=== PATIENT | male | born 1970 | race Caucasian/White ===

== ENCOUNTER 2019-06-07 19:58 | Emergency (ER) | payer BC, OTHER ==
--- OUTSIDE RECORDS SUMMARY | 2019-06-07 20:04 | XMS REPORT | Continuity of Care Document ---
:1970 External Reference #:[id number] Author Name Melanie Aguilar O.D. Address [address] [place] [address] Care Team Providers Name Role Phone Elkin Dow M.D. - Family Medicine Care Team Information Director Of Field Service Problems Active Problems Provider Date Myopia Melanie Aguilar O.D. Onset: 11/17/2014 Astigmatism Melanie Aguilar O.D. Onset: 11/17/2014 Presbyopia Melanie Aguilar O.D. Onset: 11/17/2014 Tear film insufficiency Melanie Aguilar O.D. Onset: 11/17/2014 Open-angle glaucoma - borderline Melanie Aguilar O.D. Onset: 11/27/2018 Scleritis Melanie Aguilar O.D. Onset: 04/30/2019 Age related macular degeneration Melanie Aguilar O.D. Onset: 05/20/2019 Social History Type Date Description Comments Sex Unknown ETOH Use Occasionally consumes alcohol Tobacco Use Start: Unknown Patient has never smoked Recreational Drug Use Never Used Drugs Smoking Status Reviewed: 05/20/19 Patient has never smoked Allergies, Adverse Reactions, Alerts Description No Known Drug Allergies Medications Active Medications SIG Qnty Indications Ordering Provider Date Maxitrol 1 drop both eyes 10ml H15.103 Melanie Aguilar, 04/30/2019 3.5-06873-6.1 three times a day O.D. Suspension Multiple Vitamin Unknown Tablets Artificial Tears as needed Unknown 0.2-0.2-1% Solution Immunizations Description No Information Available Vital Signs Description No Information Available Results Description No Information Available Procedures Date Code Description Status 04/30/2019 64200 Est Patient Intermediate Exam Completed 11/27/2018 96370 Scanning Computerized Ophthalmic Diagnostic Imag Posterior Completed Seg On 11/27/2018 95881 Determination Of Refractive State Completed 11/27/2018 92036 Est Patient Comprehensive Exam Completed 11/27/2018 22108 Pachymetry Completed Medical Devices Description No Information Available Encounters Description No Information Available Assessments Date Code Description Provider 05/20/2019 H15.103 Unspecified episcleritis, bilateral Melanie Aguilar O.D. 05/20/2019 H35.30 Unspecified macular degeneration Melanie Aguilar O.D. 04/30/2019 H15.103 Unspecified episcleritis, bilateral Melanie Aguilar O.D. 11/27/2018 H40.013 Open angle with borderline findings, low Melanie Aguilar O.D. risk, bilateral 11/27/2018 H52.13 Myopia, bilateral Melanie Aguilar O.D. 11/27/2018 H52.203 Unspecified astigmatism, bilateral Melanie Aguilar O.D. 11/27/2018 H52.4 Presbyopia Melanie Aguilar O.D. 11/27/2018 H04.123 Dry eye syndrome of bilateral lacrimal glands Melanie Aguilar O.D. Plan of Treatment 05/20/2019 - Melnaie Aguilar O.D.H15.103 Unspecified episcleritis, bilateralComments:Smoking can increase the risk of developing or worsening any eye related disease, as well as affect your overall health. If you are a smoker , we strongly recommend that you quit.If you are not a smoker, we strongly recommend that you do not start. discontinue maxitrol dropsstart preservative free artificial tears every 1-2 hoursif your symptoms worsen, please call the office to be seenFollow up:Saturday with Dr. Mccauley or sooner as [id number] Unspecified macular degenerationComments:Smoking can increase the risk of developing or worsening any eye related disease, as well as affect your overall health. If you are a smoker, we strongly recommend that you quit.If you are not a smoker, we strongly recommend that you do not start. Functional Status Description No Information Available Mental Status Description No Information Available Referrals Description No Information Available
--- OUTSIDE RECORDS SUMMARY | 2019-06-07 20:04 | XMS REPORT | Continuity of Care Document ---
:1970 External Reference #:[id number] Author Name Melanie Aguilar O.D. Address [address] [place] [address] Care Team Providers Name Role Phone Elkin Dow M.D. - Family Medicine Care Team Information Mental Health Nurse Problems Active Problems Provider Date Myopia Melanie Aguilar O.D. Onset: 11/17/2014 Astigmatism Melanie Aguilar O.D. Onset: 11/17/2014 Presbyopia Melanie Aguilar O.D. Onset: 11/17/2014 Tear film insufficiency Melanie Aguilar O.D. Onset: 11/17/2014 Scleritis Melanie Aguilar O.D. Onset: 04/30/2019 Open-angle glaucoma - borderline Melanie Aguilar O.D. Onset: 11/27/2018 Social History Type Date Description Comments Sex Unknown ETOH Use Occasionally consumes alcohol Tobacco Use Start: Unknown Patient has never smoked Recreational Drug Use Never Used Drugs Smoking Status Reviewed: 04/30/19 Patient has never smoked Allergies, Adverse Reactions, Alerts Description No Known Drug Allergies Medications Active Medications SIG Qnty Indications Ordering Provider Date Maxitrol 1 drop both eyes 10ml H15.103 Melanie Aguilar, 04/30/2019 3.5-49967-8.1 three times a day O.D. Suspension Multiple Vitamin Unknown Tablets Artificial Tears as needed Unknown 0.2-0.2-1% Solution Immunizations Description No Information Available Vital Signs Description No Information Available Results Description No Information Available Procedures Date Code Description Status 11/27/2018 05408 Scanning Computerized Ophthalmic Diagnostic Imag Posterior Completed Seg On 11/27/2018 45125 Determination Of Refractive State Completed 11/27/2018 72560 Est Patient Comprehensive Exam Completed 11/27/2018 63024 Pachymetry Completed Medical Devices Description No Information Available Encounters Description No Information Available Assessments Date Code Description Provider 04/30/2019 H15.103 Unspecified episcleritis, bilateral Melanie Aguilar O.D. 11/27/2018 H40.013 Open angle with borderline findings, low Melanie Aguilar O.D. risk, bilateral 11/27/2018 H52.13 Myopia, bilateral Melanie Aguilar O.D. 11/27/2018 H52.203 Unspecified astigmatism, bilateral Melanie Aguilar O.D. 11/27/2018 H52.4 Presbyopia Melanie Aguilar O.D. 11/27/2018 H04.123 Dry eye syndrome of bilateral lacrimal glands Melanie Aguilar O.D. Plan of Treatment Future Appointment(s):05/07/2019 12:45 pm - Melanie Aguilar O.D. at [facility] Salda[facility] MD, 04/30/2019 - Melanie Aguilar O.D.H15.103 Unspecified episcleritis, bilateralNew Medication:Maxitrol 3.5-19712-7.1 - 1 drop both eyes three times a dayComments:Smoking can increase the risk of developing or worsening any eye related disease, as well as affect your overall health. If you are a smoker, we strongly recommend that you quit.If you are not a smoker, we strongly recommend that you do not start. Start maxitrol drops 3 times a day both eyes if yoursymptoms worsen, please call the office to be seenFollow up:1 week review of symptoms Functional Status Description No Information Available Mental Status Description No Information Available Referrals Description No Information Available
--- NOTE | 2019-06-07 20:06 | UC ---
Cardiac HPI - HPI Summary HPI Summary: A COUPLE OF DAYS AGO DEVELOPED SHARP CHEST PAINS AT RANDOM COMPLAINTS THROUGHOUT HIS ANTERIOR CHEST. LASTING A COUPLE SECONDS THEN RESOLVING. NO ASSOCIATION WITH EXERTION. STATES IT FEELS A BIT LIKE INDIGESTION. DESPITE WHAT HE SAID TO NURSING PATIENT DENIES ANY DIAPHORESIS TO ME WITH HIS SYMPTOMS. NO SHORTNESS OF BREATH, NAUSEA, DIZZINESS. HAS A HISTORY OF BORDERLINE HYPERTENSION AND HIGH CHOLESTEROL BUT DOES NOT TAKE ANY MEDICATIONS. - History of Current Complaint Stated Complaint: CHEST PAIN Time Seen by Provider: 06/07/19 19:59 Hx Obtained From: Patient Onset/Duration: Sudden Onset, Lasting Days, Still Present Timing: Intermittent Episodes Lasting: Initial Severity: Moderate Current Severity: None Pain Intensity: 0 Chest Pain Location: Diffuse Character: Tightness Aggravating Factor(s): Nothing Alleviating Factor(s): Spontaneous Resolution Associated Signs & Symptoms: Positive: Chest Pain - Allergy/Home Medications Allergies/Adverse Reactions: Allergies Allergy/AdvReac Type Severity Reaction Status Date / Time No Known Allergies Allergy Verified 06/07/19 20:45 PMH/Surg Hx/FS Hx/Imm Hx Endocrine History: Dyslipidemia - MILD - NO MEDS Cardiovascular History: Hypertension - BORDERLINE - NO MEDS - Surgical History Surgical History: Yes Surgery Procedure, Year, and Place: Gi surgery as an infant. Septoplasty - Family History Known Family History: Positive: Cardiac Disease - Social History Alcohol Use: Occasionally Substance Use Type: None Smoking Status (MU): Never Smoked Tobacco Have You Smoked in the Last Year: No Review of Systems All Other Systems Reviewed And Are Negative: Yes Constitutional: Positive: Negative Respiratory: Positive: Negative Cardiovascular: Positive: Chest Pain Gastrointestinal: Positive: Negative Physical Exam Triage Information Reviewed: Yes Appearance: Well-Appearing, No Pain Distress, Well-Nourished Vital Signs Reviewed: Yes ENT: Positive: Hearing grossly normal Neck: Positive: Supple Respiratory Exam: Normal Cardiovascular Exam: Normal Abdomen Description: Positive: Soft, Other: - MILDLY TENDER EPIGASTRIC REGION. Negative: Distended, Guarding Musculoskeletal: Positive: No Edema Neurological: Positive: Alert Psychological: Positive: Age Appropriate Behavior Skin: Negative: Rashes Diagnostics - EKG Cardiac Rate: NL - 79BPM Cardiac Rhythm: Sinus: Normal Ectopy: None ST Segment: Normal - Assessment/Plan Course Of Treatment: PATIENT IS A 48-YEAR-OLD MALE WITH BORDERLINE HYPERTENSION AND MILD HYPERCHOLESTEROLEMIA PRESENTING WITH INTERMITTENT SHARP CHEST PAIN OVER THE PAST 1-2 DAYS. PATIENT REQUIRES A HIGHER LEVEL OF SERVICE THAN WHAT IS AVAILABLE IN THE URGENT CARE. TO [facility] ER BY PRIVATE CAR. PT OFFERED TRANSPORT TO THE ER BY AMBULANCE BUT DECLINES. ADVISED THAT BY NOT TRAVELING IN A MONITORED SETTING HE COULD BE RISKING WORSENING OF HIS CONDITION THAT COULD POSE A THREAT TO HIS LIFE, HEALTH AND MEDICAL SAFETY. HE VERBALIZES UNDERSTANDING AND CONTINUES TO DECLINE AMBULANCE TRANSFER. - Clinical Impression Provider Diagnosis: Chest pain Discharge ED - Sign-Out/Discharge Documenting (check all that apply): Patient Departure All imaging exams completed and their final reports reviewed: No Studies - Discharge Plan Condition: Stable Disposition: TRANS HIGHER LVL OF CARE FAC Patient Education Materials: Chest Pain (ED) Referrals: Elkin Dow MD [Medical Doctor] - If Needed Additional Instructions: GO DIRECTLY TO THE [facility] ER FROM HERE FOR FURTHER EVALUATION. YOU HAVE DECLINED TRANSFER TO THE ER BY AMBULANCE. BE ADVISED THAT BY NOT TRAVELING IN A MONITORED SETTING YOU COULD BE RISKING WORSENING OF YOUR CONDITION THAT COULD POSE A THREAT TO YOUR LIFE, HEALTH AND MEDICAL SAFETY. - Billing Disposition and Condition Condition: STABLE Disposition: Trans Higher Lvl of Care Fac
[2019-06-07 20:15] VITALS: BP 144/95
== END 2019-06-07 20:26 | disposition short-term general hospital (02) ==
LOC: UCEAST 19:58
DX: R07.9 Chest pain, unspecified (principal); R03.0 Elevated blood-pressure reading, without diagnosis of hypertension
CPT/HCPCS: 99213; G0463

== ENCOUNTER 2019-06-07 20:37 | Emergency (ER) | payer BC ==
[2019-06-07 22:18] LABS: ABS Basophils 0.1 10^3/ul (0-0.2); ABS Eosinophils 0.2 10^3/ul (0-0.6); ABS Lymphocytes 2.9 10^3/ul (1.0-4.8); ABS Monocytes 0.6 10^3/ul (0-0.8); ABS Neutrophils 6.4 10^3/ul (1.5-7.7); Eosinophil % 2.4 %; Hematocrit 41 % (42-52); Hemoglobin 14.3 g/dL (14.0-18.0); Lymphocyte % 28.3 %; Mean Corpuscular HGB Conc 35 g/dL (31-36); Mean Corpuscular Hemoglobin 31 pg (27-31); Mean Corpuscular Volume 89 fL (80-94); Mean Platelet Volume 9.1 fL (7.4-10.4); Platelet Count 240 10^3/uL (150-450); Red Blood Count 4.66 10^6 /uL (4.18-5.48); Red Cell Distribution Width 13 % (10-15); White Blood Count 10.2 10^3/uL (3.5-10.8)
[2019-06-07 22:27] LABS: INR 0.98 (0.82-1.09)
[2019-06-07 22:36] LABS: Albumin 4.4 g/dL (3.2-5.2); Albumin/Globulin Ratio 1.7 (1-3); BUN/Creatinine Ratio 15.9 (8-20); Calcium 9.2 mg/dL (8.6-10.3); EGFR African American 110.9 (>60); EGFR Non-African American 91.7 (>60); Globulin 2.6 g/dL (2-4); Total Bilirubin 0.4 mg/dL (0.2-1.0)
--- NOTE | 2019-06-08 00:46 | ED ---
HPI Chest Pain - HPI Summary HPI Summary: Patient complains of diffuse chest pain and epigastric pain starting tonight around 8 PM, increased blood pressure, and lightheadedness. Patient states pain is intermittent, lasts minutes at a time, 4/10 at worst, states it has been happening a few times over the past couple days, often associated with eating. No active pain at this time. Denies SOB, fever, cough, sore throat, SOB, N/V/D, change in urine, change in BM. Medical history is HDL. Positive family cardiac history. States to 3 cups of coffee a day. Positive smoker. Denies EtOH, recreational drug use. No prior cardiac history. - History of Current Complaint Chief Complaint: EDChestPainROMI Time Seen by Provider: 06/08/19 00:24 Hx Obtained From: Patient Onset/Duration: Started Days Ago Timing: Intermittent, Lasting Minutes Initial Severity: Moderate Current Severity: None Pain Intensity: 0 Pain Scale Used: 0-10 Numeric Chest Pain Location: Diffuse Chest Pain Radiates: Yes Chest Pain Radiates To:: Epigastric Character: Dull/Aching Aggravating Factor(s): Nothing, Other: - food Alleviating Factor(s): Spontaneous Resolution Associated Signs and Symptoms: Positive: Chest Pain - Allergy/Home Medications Allergies/Adverse Reactions: Allergies Allergy/AdvReac Type Severity Reaction Status Date / Time No Known Allergies Allergy Verified 06/07/19 20:45 PMH/Surg Hx/FS Hx/Imm Hx Endocrine/Hematology History: Denies: Hx Diabetes, Hx Thyroid Disease Cardiovascular History: Denies: Hx Hypertension Respiratory History: Denies: Hx Asthma, Hx Chronic Obstructive Pulmonary Disease (COPD) GI History: Denies: Hx Ulcer History: Denies: Hx Dialysis Sensory History: Denies: Hx Eye Prosthesis Opthamlomology History: Denies: Hx Legally Blind EENT History: Denies: Hx Deafness Neurological History: Denies: Hx Dementia - Surgical History Surgery Procedure, Year, and Place: Gi surgery as an . Septoplasty Infectious Disease History: No Infectious Disease History: Denies: Hx Hepatitis, Hx Human Immunodeficiency Virus (HIV), History Other Infectious Disease, Traveled Outside the [place] in Last 30 Days - Family History Known Family History: Positive: None - Social History Alcohol Use: Weekly Substance Use Type: Reports: None Smoking Status (MU): Never Smoked Tobacco Have You Smoked in the Last Year: No Review of Systems Constitutional: Negative Eyes: Negative ENT: Negative Positive: Chest Pain Respiratory: Negative Positive: Abdominal Pain Genitourinary: Negative Musculoskeletal: Negative Skin: Negative Neurological: Negative Psychological: Normal All Other Systems Reviewed And Are Negative: Yes Physical Exam - Summary Physical Exam Summary: Chest pain not reproducible. Mild tenderness to palpation in epigastrium. Abdominal exam otherwise unremarkable. Triage Information Reviewed: Yes Vital Signs On Initial Exam: Initial Vitals Temp Pulse Resp BP Pulse Ox 98.1 F 76 15 144/106 95 06/07/19 20:43 06/07/19 20:43 06/07/19 20:43 06/07/19 20:43 06/07/19 20:43 Vital Signs Reviewed: Yes Appearance: Positive: Well-Appearing Skin: Positive: Warm Head/Face: Positive: Normal Head/Face Inspection Eyes: Positive: Normal Neck: Positive: Supple Respiratory/Lung Sounds: Positive: Clear to Auscultation Cardiovascular: Positive: Normal Abdomen Description: Positive: Other: Musculoskeletal: Positive: Normal Neurological: Positive: Normal Psychiatric: Positive: Normal AVPU Assessment: Alert - [place] Coma Scale Best Eye Response: 4 - Spontaneous Best Motor Response: 6 - Obeys Commands Best Verbal Response: 5 - Oriented Coma Scale Total: 15 Procedures - Sedation Patient Received Moderate/Deep Sedation with Procedure: No Diagnostics - Vital Signs Vital Signs Temp Pulse Resp BP Pulse Ox 06/08/19 00:13 66 15 165/105 97 06/08/19 00:12 66 97 06/08/19 00:10 71 152/101 97 06/07/19 23:12 97.0 F 68 15 155/105 97 06/07/19 20:43 98.1 F 76 15 144/106 95 - Laboratory Lab Results: Lab Results 06/07/19 06/07/19 06/07/19 Range/Units 22:12 22:12 22:12 WBC 10.2 (3.5-10.8) 10^3/uL RBC 4.66 (4.18-5.48) 10^6 /uL Hgb 14.3 (14.0-18.0) g/dL Hct 41 L (42-52) % MCV 89 (80-94) fL MCH 31 (27-31) pg MCHC 35 (31-36) g/dL RDW 13 (10-15) % Plt Count 240 (150-450) 10^3/uL MPV 9.1 (7.4-10.4) fL Neut % (Auto) 62.7 % Lymph % (Auto) 28.3 % [place] % (Auto) 6.0 % Eos % (Auto) 2.4 % Baso % (Auto) 0.6 % Absolute Neuts (auto) 6.4 (1.5-7.7) 10^3/ul Absolute Lymphs (auto) 2.9 (1.0-4.8) 10^3/ul Absolute Monos (auto) 0.6 (0-0.8) 10^3/ul Absolute Eos (auto) 0.2 (0-0.6) 10^3/ul Absolute Basos (auto) 0.1 (0-0.2) 10^3/ul Absolute Nucleated RBC 0.0 10^3/ul Nucleated RBC % 0.0 INR (Anticoag Therapy) 0.98 (0.82-1.09) Sodium 138 (135-145) mmol/L Potassium 4.0 (3.5-5.0) mmol/L Chloride 106 (101-111) mmol/L Carbon Dioxide 26 (22-32) mmol/L Anion Gap 6 (2-11) mmol/L BUN 14 (6-24) mg/dL Creatinine 0.88 (0.67-1.17) mg/dL Est GFR ( Amer) 110.9 (>60) Est GFR (Non-Af Amer) 91.7 (>60) BUN/Creatinine Ratio 15.9 (8-20) Glucose 108 H (70-100) mg/dL Calcium 9.2 (8.6-10.3) mg/dL Total Bilirubin 0.40 (0.2-1.0) mg/dL AST 22 (13-39) U/L ALT 31 (7-52) U/L Alkaline Phosphatase 81 (34-104) U/L Troponin I 0.00 (<0.03) ng/mL Total Protein 7.0 (6.4-8.9) g/dL Albumin 4.4 (3.2-5.2) g/dL Globulin 2.6 (2-4) g/dL Albumin/Globulin Ratio 1.7 (1-3) Result Diagrams: 06/07/19 22:12 06/07/19 22:12 Lab Statement: Any lab studies that have been ordered have been reviewed, and results considered in the medical decision making process. Chest Pain Course/Dx - Course Course Of Treatment: Patient complains of diffuse chest pain and epigastric pain starting tonight around 8 PM, increased blood pressure, and lightheadedness. Patient states pain is intermittent, lasts minutes at a time, 4/10 at worst, states it has been happening a few times over the past couple days, often associated with eating. No active pain at this time. Denies SOB, fever, cough, sore throat, SOB, N/V/D, change in urine, change in BM. Medical history is HDL. Positive family cardiac history. States to 3 cups of coffee a day. Positive smoker. Denies EtOH, recreational drug use. No prior cardiac history. Vital signs within normal limits. Labs unremarkable. Serial troponins negative. EKG sinus rhythm, heart rate of 72, normal P axis. No prior EKG on file. Heart score 2. Symptoms more consistent with acid reflux. - Diagnoses Provider Diagnoses: Acid reflux Discharge ED - Sign-Out/Discharge Documenting (check all that apply): Patient Departure - Discharge Plan Condition: Stable Disposition: HOME Prescriptions: Omeprazole 20 mg PO DAILY 30 Days #30 capsule. Patient Education Materials: Gastroesophageal Reflux Disease (ED) Referrals: Mark Sandhu MD [Primary Care Provider] - Additional Instructions: Take omeprazole daily to help relieve possible acid reflux symptoms. Follow-up with primary care for further evaluation of possible hypertension.. Return to the ED for any new or worsening symptoms. - Billing Disposition and Condition Condition: STABLE Disposition: Home
[2019-06-08] MEDS ORDERED: Pantoprazole TAB * 40 MG TAB PO ONE (01:12)
[2019-06-08 02:03] VITALS: BP 151/104
== END 2019-06-08 02:03 | disposition home or self-care (01) ==
LOC: ED 20:37
DX: K21.9 Gastro-esophageal reflux disease without esophagitis (principal); R07.89 Other chest pain; E78.00 Pure hypercholesterolemia, unspecified; Z79.82 Long term (current) use of aspirin; Z82.49 Family history of ischemic heart disease and other diseases of the circulatory system; F17.200 Nicotine dependence, unspecified, uncomplicated
CPT/HCPCS: 36415; 80053; 84484; 85025; 85610; 93005; 99283